=== PATIENT | male | born 2000 ===

== ENCOUNTER 2023-01-16 12:26 | Inpatient (IN) | payer BC, OTHER ==
[2023-01-16] MEDS ORDERED: SODIUM CHLORIDE 0.9% 1,000 ML IV STA ×2 (12:55→15:28)
[2023-01-16] MEDS ORDERED: MORPHINE SULFATE 4 MG/ML SYRINGE IVP STA (12:55)
[2023-01-16] MEDS ORDERED: KETOROLAC 15 MG/ML 1 ML VIAL IVP STA (12:55)
[2023-01-16] MEDS ORDERED: PANTOPRAZOLE 40 MG/10 ML VIAL IVP STA (12:55)
[2023-01-16] MEDS ORDERED: ONDANSETRON 4 MG/2 ML VIAL IVP STA (12:55)
[2023-01-16 13:27] LABS: Basophils # (A) 0.1 k/uL (0-0.2); Basophils % (A) 0 %; Eosinophils # (A) 0.1 k/uL (0-0.7); Eosinophils % (A) 1 %; HCT 50.9 % (39.0-53.0); HGB 17.8 gm/dL (13.0-17.5); Lymphocytes # (A) 3.2 k/uL (1.0-4.8); Lymphocytes % (A) 19 %; MCH 31.7 pg (25.0-35.0); MCV 90.6 fL (80.0-100.0); Monocytes # (A) 1.3 k/uL (0-1.0); Monocytes % (A) 7 %; Neutrophils # (A) 12.3 k/uL (1.3-7.7); Neutrophils % (A) 71 %; Platelet Count 262 k/uL (150-450); RBC 5.62 m/uL (4.30-5.90); RDW 12.5 % (11.5-15.5); WBC 17.2 k/uL (4.0-11.0)
--- NOTE | 2023-01-16 13:35 | ED ---
General Adult HPI - General Chief complaint: Abdominal Pain Stated complaint: Vomiting Time Seen by Provider: 01/16/23 12:45 Source: patient, RN notes reviewed, old records reviewed Mode of arrival: wheelchair Limitations: no limitations - History of Present Illness Initial comments: Patient is a 22-year-old male with past medical history is unremarkable who presents emergency Department complaining of right-sided abdominal pain, groin pain for 1 day. Patient is also to nausea and vomiting with it. Describes that he feels his testicle on the right side is tender with radiation up into right lower quadrant of his abdomen. Endorses nausea and a few episodes of nonbilious nonbloody emesis. Denies any diarrhea. Sudden onset yesterday. Initially began more mild, and was more severe this morning. Denies any chest pain, shortness breath. Denies any upper abdominal pain. Denies any history of abdominal surgeries. No other acute complaints at this time. Denies any dysuria or hematuria. Presents for further evaluation at this time. - Related Data Home Medications Medication Instructions Recorded Confirmed No Known Home Medications 01/16/23 01/16/23 Allergies Allergy/AdvReac Type Severity Reaction Status Date / Time amoxicillin Allergy Rash/Hives Verified 01/16/23 16:21 Penicillins Allergy Rash/Hives Verified 01/16/23 16:21 Review of Systems ROS Statement: Those systems with pertinent positive or pertinent negative responses have been documented in the HPI. Review of Systems: CONST: Denies fever EYES: Denies blurry vision ENT: Denies nasal congestion C/V: Denies Chest pain RESP: Denies shortness of breath GI: Endorses abdominal pain : Endorses right scrotal pain SKIN: Denies rash. MSK: Denies joint pain. NEURO: Denies headache ROS Other: All systems not noted in ROS Statement are negative. Past Medical History Past Medical History: No Reported History History of Any Multi-Drug Resistant Organisms: None Reported Past Surgical History: No Surgical Hx Reported Past Psychological History: Anxiety Smoking Status: Never smoker Past Alcohol Use History: None Reported Past Drug Use History: Marijuana General Exam - General Exam Comments Initial Comments: General: Appears in mild to moderate distress secondary to pain. HEAD: Normal with no signs of head trauma. EYES: PERRLA, EOMI, conjunctiva normal, no discharge. ENT: Hearing grossly intact, normal oropharynx. RESPIRATORY: Clear breath sounds bilaterally. No wheezes, rales, or rhonchi. C/V: Regular rate and rhythm. S1 and S2 auscultated, no edema, peripheral pulses 2+ and intact throughout ABD: Abdomen is soft, nondistended. Tender to palpation in the right lower quadrant, suprapubic region. Seems to extend down towards the groin. No guarding. No rebound tenderness. No peritoneal signs. : Penile shaft is unremarkable. No discharge. No rashes or skin changes. Patient is tender to palpation of the right testicle that is very minimal. No tenderness of the left testicle. No change in his pain with movement of the right testicle at all. No other findings. EXT: Normal range of motion, no obvious deformity SKIN: No rashes or lesions observed on exposed skin. NEURO: Alert and oriented 4. Limitations: no limitations Course Vital Signs 01/16/23 01/16/23 12:31 16:08 Temperature 98.5 F Pulse Rate 95 90 Respiratory 20 Rate Blood Pressure 137/77 140/80 O2 Sat by Pulse 98 97 Oximetry Medical Decision Making - Medical Decision Making Was pt. sent in by a medical professional or institution (, PA, PROCESSING MGR, urgent care, hospital, or group home...) When possible be specific @ -No Did you speak to anyone other than the patient for history (EMS, parent, family, police, friend...)? What history was obtained from this source @ -No Did you review nursing and triage notes (agree or disagree)? Why? @ -I reviewed and agree with nursing and triage notes Were old charts reviewed (outside hosp., previous admission, EMS record, old EKG, old radiological studies, urgent care reports/EKG's, group home records)? Report findings @ -No old charts were reviewed Differential Diagnosis (chest pain, altered mental status, abdominal pain women, abdominal pain men, vaginal bleeding, weakness, fever, dyspnea, syncope, headache, dizziness, GI bleed, back pain, seizure, CVA, palpatations, mental health, musculoskeletal)? @ -Differential Abdominal Pain Men: Appendicitis, cholecystitis, diverticulosis, ischemic bowel, pancreatitis, hepatitis, UTI, gastroenteritis, AAA, incarcerated hernia, bowel obstruction, constipation, inflammatory bowel, hepatitis, peptic ulcer disease, splenic infarction, perforated viscus, testicular torsion, this is not meant to be an all-inclusive list EKG interpreted by me (3pts min.). @ -None done X-rays interpreted by me (1pt min.). @ -None done CT interpreted by me (1pt min.). @ -CT of the abdomen and pelvis reveals acute uncomplicated appendicitis. U/S interpreted by me (1pt. min.). @ -Ultrasound scrotum, kidneys reveals no evidence of testicular torsion, kidney stone, hydronephrosis What testing was considered but not performed or refused? (CT, X-rays, U/S, labs)? Why? @ -None What meds were considered but not given or refused? Why? @ -None Did you discuss the management of the patient with other professionals (professionals i.e. , PA, [employer]ING [employer], lab, RT, psych nurse, social media specialist, senior sas developer, teacher, youth liaison officer, caser shoe parts)? Give summary @ -Yes, discussed with Dr. Dao on-call surgeon who accepted the patient. Was smoking cessation discussed for >3mins.? @ -No Was critical care preformed (if so, how long)? @ -No Were there social determinants of health that impacted care today? How? (Homelessness, low income, unemployed, alcoholism, drug addiction, transportation, low edu. Level, literacy, decrease access to med. care, half-way, rehab)? @ -No Was there de-escalation of care discussed even if they declined (Discuss DNR or withdrawal of care, Hospice)? DNR status @ -No What co-morbidities impacted this encounter? (DM, HTN, Smoking, COPD, CAD, Cancer, CVA, ARF, Chemo, Hep., AIDS, mental health diagnosis, sleep apnea, morbid obesity)? @ -None Was patient admitted / discharged? Hospital course, mention meds given and route, prescriptions, significant lab abnormalities, going to OR and other pertinent info. @ -Based on the patient's presentation and physical exam, and concern for abdominal etiology for his current symptoms. Cannot rule out right sided testicular torsion or possible appendicitis. We will obtain ultrasound of the scrotum as well as kidneys to start, as well as abdominal laboratory studies. Patient was in agreement this plan. He'll be symptomatically treated with IV fluids, IV Toradol and morphine, as well as IV Zofran. He'll also receive IV Protonix. Vital signs within acceptable limits. Ultrasound scrotum and kidneys revealed no evidence of testicular torsion. No evidence of nephrolithiasis or hydronephrosis on the right to suggest a kidney stone. Laboratory studies are remarkable for leukocytosis of 17.2. Patient has 4+ ketones in his urine. Suspect dehydration from nausea and vomiting he will be given an additional fluid bolus. I did the patient, at this time and I would like to obtain a CT abdomen and pelvis. He was in agreement this plan. CT was positive for acute appendicitis appears uncomplicated. Patient was started on ciprofloxacin, Flagyl due to his penicillin ALLERGY. Blood cultures were obtained and sent. I spoke with the on-call surgeon, Dr. Dao who accepted the patient to his service. Patient was made nothing by mouth. He will likely receive surgery later this evening. I did the patient, and he was in agreement this plan. Patient was admitted in stable condition. Undiagnosed new problem with uncertain prognosis? @ -No Drug Therapy requiring intensive monitoring for toxicity (Heparin, Nitro, Insulin, Cardizem)? @ -No Were any procedures done? @ -No Diagnosis/symptom? @ -Appendicitis Acute, or Chronic, or Acute on Chronic? @ -Acute Uncomplicated (without systemic symptoms) or Complicated (systemic symptoms)? @ -Complicated Side effects of treatment? @ -none Exacerbation, Progression, or Severe Exacerbation] @ -no Poses a threat to life or bodily function? @ -Yes, if untreated can result in significant morbidity mortality. Diagnosis/symptom? @ -Dehydration Acute, or Chronic, or Acute on Chronic? @ -Acute Uncomplicated (without systemic symptoms) or Complicated (systemic symptoms)? @ -Uncomplicated Side effects of treatment? @ -none Exacerbation, Progression, or Severe Exacerbation] @ -no Poses a threat to life or bodily function? @ -Yes, if untreated can result in significant morbidity and mortality. - Lab Data Result diagrams: 01/16/23 13:06 01/16/23 13:06 Lab Results 01/16/23 01/16/23 01/16/23 Range/Units 13:06 13:06 13:06 WBC 17.2 H (4.0-11.0) k/uL RBC 5.62 (4.30-5.90) m/uL Hgb 17.8 H (13.0-17.5) gm/dL Hct 50.9 (39.0-53.0) % MCV 90.6 (80.0-100.0) fL MCH 31.7 (25.0-35.0) pg MCHC 35.0 (31.0-37.0) g/dL RDW 12.5 (11.5-15.5) % Plt Count 262 (150-450) k/uL MPV 8.0 Neutrophils % 71 % Lymphocytes % 19 % Monocytes % 7 % Eosinophils % 1 % Basophils % 0 % Neutrophils # 12.3 H (1.3-7.7) k/uL Lymphocytes # 3.2 (1.0-4.8) k/uL Monocytes # 1.3 H (0-1.0) k/uL Eosinophils # 0.1 (0-0.7) k/uL Basophils # 0.1 (0-0.2) k/uL PT 11.4 (9.0-12.0) sec INR 1.1 (<1.2) APTT 19.5 L (22.0-30.0) sec Sodium 138 (137-145) mmol/L Potassium 4.5 (3.5-5.1) mmol/L Chloride 99 (98-107) mmol/L Carbon Dioxide 23 (22-30) mmol/L Anion Gap 16 mmol/L BUN 15 (9-20) mg/dL Creatinine 0.84 (0.66-1.25) mg/dL Est GFR (CKD-EPI)AfAm >90 (>60 ml/min/1.73 sqM) Est GFR (CKD-EPI)NonAf >90 (>60 ml/min/1.73 sqM) Glucose 102 H (74-99) mg/dL Plasma Lactic Acid Travon (0.7-2.0) mmol/L Calcium 9.6 (8.4-10.2) mg/dL Total Bilirubin 1.5 H (0.2-1.3) mg/dL AST 24 (17-59) U/L ALT 20 (4-49) U/L Alkaline Phosphatase 88 (38-126) U/L Total Protein 7.8 (6.3-8.2) g/dL Albumin 4.8 (3.5-5.0) g/dL Amylase 56 (30-110) U/L Lipase 43 (23-300) U/L Urine Color Urine Appearance (Clear) Urine pH (5.0-8.0) Ur Specific Lewis (1.001-1.035) Urine Protein (Negative) Urine Glucose (UA) (Negative) Urine Ketones (Negative) Urine Blood (Negative) Urine Nitrite (Negative) Urine Bilirubin (Negative) Urine Urobilinogen (<2.0) mg/dL Ur Leukocyte Esterase (Negative) 01/16/23 01/16/23 Range/Units 13:06 14:53 WBC (4.0-11.0) k/uL RBC (4.30-5.90) m/uL Hgb (13.0-17.5) gm/dL Hct (39.0-53.0) % MCV (80.0-100.0) fL MCH (25.0-35.0) pg MCHC (31.0-37.0) g/dL RDW (11.5-15.5) % Plt Count (150-450) k/uL MPV Neutrophils % % Lymphocytes % % Monocytes % % Eosinophils % % Basophils % % Neutrophils # (1.3-7.7) k/uL Lymphocytes # (1.0-4.8) k/uL Monocytes # (0-1.0) k/uL Eosinophils # (0-0.7) k/uL Basophils # (0-0.2) k/uL PT (9.0-12.0) sec INR (<1.2) APTT (22.0-30.0) sec Sodium (137-145) mmol/L Potassium (3.5-5.1) mmol/L Chloride (98-107) mmol/L Carbon Dioxide (22-30) mmol/L Anion Gap mmol/L BUN (9-20) mg/dL Creatinine (0.66-1.25) mg/dL Est GFR (CKD-EPI)AfAm (>60 ml/min/1.73 sqM) Est GFR (CKD-EPI)NonAf (>60 ml/min/1.73 sqM) Glucose (74-99) mg/dL Plasma Lactic Acid Travon 1.4 (0.7-2.0) mmol/L Calcium (8.4-10.2) mg/dL Total Bilirubin (0.2-1.3) mg/dL AST (17-59) U/L ALT (4-49) U/L Alkaline Phosphatase (38-126) U/L Total Protein (6.3-8.2) g/dL Albumin (3.5-5.0) g/dL Amylase (30-110) U/L Lipase (23-300) U/L Urine Color Yellow Urine Appearance Clear (Clear) Urine pH 6.0 (5.0-8.0) Ur Specific Lewis 1.021 (1.001-1.035) Urine Protein Trace H (Negative) Urine Glucose (UA) Negative (Negative) Urine Ketones 4+ H (Negative) Urine Blood Negative (Negative) Urine Nitrite Negative (Negative) Urine Bilirubin Negative (Negative) Urine Urobilinogen <2.0 (<2.0) mg/dL Ur Leukocyte Esterase Negative (Negative) Disposition Clinical Impression: Appendicitis, Dehydration Disposition: ADMITTED IP TO THIS [facility] Condition: Stable Time of Disposition: 15:15
[2023-01-16 13:42] LABS: ALT 20 U/L (4-49); AST 24 U/L (17-59); African American GFR (CKD) >90 (>60 ml/min/1.73 sqM); Albumin 4.8 g/dL (3.5-5.0); Alkaline Phosphatase 88 U/L (38-126); Amylase 56 U/L (30-110); Anion Gap 16 mmol/L; Blood Urea Nitrogen 15 mg/dL (9-20); Calcium 9.6 mg/dL (8.4-10.2); Carbon Dioxide 23 mmol/L (22-30); Chloride 99 mmol/L (98-107); Glucose 102 mg/dL (74-99); INR 1.1 (<1.2); Lipase 43 U/L (23-300); Non-African American GFR(CKD) >90 (>60 ml/min/1.73 sqM); Potassium 4.5 mmol/L (3.5-5.1); Prothrombin Time 11.4 sec (9.0-12.0); Sodium 138 mmol/L (137-145); Total Bilirubin 1.5 mg/dL (0.2-1.3); Total Protein 7.8 g/dL (6.3-8.2)
[2023-01-16 13:50] LABS: Partial Thromboplastin Time 19.5 sec (22.0-30.0)
--- NOTE | 2023-01-16 14:04 | US ---
EXAMINATION TYPE: US renals and bladder DATE OF EXAM: 01/16/2023 COMPARISON: NONE CLINICAL HISTORY: eval for right hydronephrosis. right flank pain EXAM MEASUREMENTS: Right Kidney: 10.7 x 4.1 x 5.4 cm Left Kidney: 11.1 x 5.1 x 4.2 cm Right Kidney: no evidence of hydronephrosis Left Kidney: no evidence of hydronephrosis Bladder: not fully distended Bilateral Jets seen: no There is no evidence for hydronephrosis at this point in time. No nephrolithiasis is seen. No aurelia s are identified. The urinary bladder is anechoic. Bilateral ureteral jets are seen. IMPRESSION: No evidence for obstructive uropathy.
--- NOTE | 2023-01-16 14:06 | US ---
EXAMINATION TYPE: US scrotum with doppler. Grayscale and color Doppler Duplex imaging performed of leni deal scrotum. DATE OF EXAM: 01/16/2023 COMPARISON: NONE CLINICAL HISTORY: right scrotal pain, eval for torsion. scrotal pain EXAM MEASUREMENTS: TESTICLES: Right Testicle: 3.5 x 1.8 x 3.4 cm Left Testicle: 3.5 x 1.8 x 3.8 cm EPIDIDYMIS HEAD: Right Epididymis: 1.1 cm Left Epididymis: 0.9 cm Doppler performed to assess for testicular vascularity; good bilateral color flow and waveforms are s een. There is no evidence of testicular torsion. Presence of hydroceles: no Presence of varicoceles: no IMPRESSION: Normal exam. No testicular torsion or mass.
[2023-01-16 15:22] LABS: Appearance,Urine Clear (Clear); Bilirubin,Urine Negative (Negative); Blood,Urine Negative (Negative); Color,Urine Yellow; Glucose,Urine (UA) Negative (Negative); Ketones,Urine 4+ (Negative); Leukocyte Esterase,Urine Negative (Negative); Nitrite,Urine Negative (Negative); Protein,Urine Trace (Negative); Specific Gravity,Urine 1.021 (1.001-1.035); Urobilinogen,Urine <2.0 mg/dL (<2.0)
--- NOTE | 2023-01-16 15:24 | CT ---
EXAMINATION TYPE: CT abdomen pelvis w con DATE OF EXAM: 01/16/2023 COMPARISON: None HISTORY: RT SIDED ABDOMINAL/ GROIN PAIN. CT DLP: 623.7 mGycm Automated exposure control for dose reduction was used. CONTRAST: Performed with IV Contrast, patient injected with 100 mL of Isovue 300. Images obtained from the diaphragm to the floor of the pelvis with the IV contrast. There are delayed images. Lung bases are clear. No pleural effusion. Heart size is normal. No pericardial effusion. Liver splee n stomach pancreas and gallbladder appear intact. The bile ducts are not dilated. There is no adrenal mass. Kidneys show satisfactory contrast opacification. No hydronephrosis. Ureter s are not dilated. No retroperitoneal adenopathy. The bladder distends smoothly. There is small amoun t of low-density free fluid in the pelvis. No inguinal hernia. There is no mesenteric edema. No free air. No sign of a bowel obstruction. There is tiny amount of fl uid in the left paracolic gutter. Lumbar vertebrae have normal spacing and alignment. Posterior elements are intact. No compression fra cture. The bony pelvis is intact. The hip joints are intact. Exam limited by lack of intestinal contr ast. Appendix appears to be visualized medially extending superiorly along the medial aspect of the a scending colon and best seen on coronal image 34,35. Appendix is dilated up to 1.5 cm on the distal e nd. The cecum is low in the pelvis. There is suggestion of some mild wall thickening of the distal il eal loops. IMPRESSION: There is some low-density free fluid in the pelvis. There is evidence for appendicitis with appendix dilated up to 1.5 cm.. There is mild wall thickening of loops of distal ileum.
[2023-01-16] MEDS ORDERED: NALOXONE 0.4 MG/ML 1 ML VIAL IV PRN ×2 (15:29→16:40)
[2023-01-16] MEDS: SODIUM CHLORIDE 0.9% 1,000 ML IV SCH ×2 (16:01→17:55)
[2023-01-16] MEDS: ONDANSETRON 4 MG/2 ML VIAL IVP PRN (16:02)
[2023-01-16] MEDS: CEFEPIME 2 GM in SODIUM CHLORIDE 0.9% 100 ML IVPB SCH (16:02)
[2023-01-16] MEDS: MORPHINE SULFATE 4 MG/ML SYRINGE IV PRN ×2 (16:02→22:48)
--- NOTE | 2023-01-16 16:39 | P.GSHP ---
History of Present Illness H&P Date: 01/16/23 Chief Complaint: Acute abdominal pain, nausea and emesis Patient is a 22-year-old gentleman who presents to [facility] emergency department on 01/16/2023 with chief complaint of around 24 hours of progressive abdominal pain along with nausea and multiple bouts of nonbloody emesis. He tells me the pain started somewhat central and diffusely in the abdomen and has now come to rest in the right side with some radiation to the right flank and back as well as right hemiscrotum. He may have had similar symptoms a few years ago that he attributed to food poisoning that were transient in nature. He's never undergone any manner of endoscopy, has no known personal history of inflammatory bowel disease. Symptoms of grown progressively worse up until presentation today. He is not maintained on any manner of oral anticoagulants, has no known health problems. Laboratory studies on presentation reflected degree of dehydration with a white blood cell count of 17.2, hemoglobin of 17.8, platelet count of 262, ketones in the urine without flagrant signs of UTI and a normal appearing comprehensive metabolic panel with the exception of a mild elevation of total bilirubin at 1.5, no other liver function elevations. Amylase and lipase were within normal limits. A scrotal ultrasound showed no signs of torsion, retroperitoneal ultrasound showed no signs of obstruction and a computed tomography scan of the abdomen and pelvis disclosed an inflamed appearing appendix with regional inflammatory changes involving the adjacent small bowel in trace free fluid in the pelvis without free air or organized abscess. Patient's had a hypertensive, mildly tachycardic appearance in the setting of nausea and pain. He's receive broad-spectrum antibiotics in the ER with cefepime and Flagyl. - Constitutional Constitutional: Reports as per HPI, Reports chills Past Medical History Past Medical History: No Reported History History of Any Multi-Drug Resistant Organisms: None Reported Past Surgical History: No Surgical Hx Reported Past Psychological History: Anxiety Smoking Status: Never smoker Past Alcohol Use History: None Reported Past Drug Use History: Marijuana Medications and Allergies Home Medications Medication Instructions Recorded Confirmed Type No Known Home Medications 01/16/23 01/16/23 History Allergies Allergy/AdvReac Type Severity Reaction Status Date / Time amoxicillin Allergy Rash/Hives Verified 01/16/23 16:21 Penicillins Allergy Rash/Hives Verified 01/16/23 16:21 Surgical - Exam Osteopathic Statement: *. No significant issues noted on an osteopathic structural exam other than those noted in the History and Physical/Consult. Vital Signs Temp Pulse Resp BP Pulse Ox 98.5 F 95 20 137/77 98 01/16/23 12:31 01/16/23 12:31 01/16/23 12:31 01/16/23 12:31 01/16/23 12:31 - General well developed, no distress - Eyes PERRL, normal ocular movement - ENT normal pinna, normal nares, normal mucosa, no hearing loss - Respiratory normal expansion, normal respiratory effort, clear to auscultation - Cardiovascular Rhythm: regular - Abdomen Abdomen is soft, there is moderate right lower quadrant tenderness on exam with a positive Rovsing's sign and positive psoas sign on the right. No guarding, no abdominal distention. - Integumentary no rash, no abnormal pigmentation - Neurologic normal coordination, normal sensation - Psychiatric oriented to time, oriented to person, oriented to place, speech is normal, memory intact Results - Labs 01/16/23 13:06 01/16/23 13:06 Abnormal Lab Results - Last 24 Hours (Table) 01/16/23 01/16/23 01/16/23 Range/Units 13:06 13:06 13:06 WBC 17.2 H (4.0-11.0) k/uL Hgb 17.8 H (13.0-17.5) gm/dL Neutrophils # 12.3 H (1.3-7.7) k/uL Monocytes # 1.3 H (0-1.0) k/uL APTT 19.5 L (22.0-30.0) sec Glucose 102 H (74-99) mg/dL Total Bilirubin 1.5 H (0.2-1.3) mg/dL Urine Protein (Negative) Urine Ketones (Negative) 01/16/23 Range/Units 14:53 WBC (4.0-11.0) k/uL Hgb (13.0-17.5) gm/dL Neutrophils # (1.3-7.7) k/uL Monocytes # (0-1.0) k/uL APTT (22.0-30.0) sec Glucose (74-99) mg/dL Total Bilirubin (0.2-1.3) mg/dL Urine Protein Trace H (Negative) Urine Ketones 4+ H (Negative) Diabetes panel 01/16/23 Range/Units 13:06 Sodium 138 (137-145) mmol/L Potassium 4.5 (3.5-5.1) mmol/L Chloride 99 (98-107) mmol/L Carbon Dioxide 23 (22-30) mmol/L BUN 15 (9-20) mg/dL Creatinine 0.84 (0.66-1.25) mg/dL Glucose 102 H (74-99) mg/dL Calcium 9.6 (8.4-10.2) mg/dL AST 24 (17-59) U/L ALT 20 (4-49) U/L Alkaline Phosphatase 88 (38-126) U/L Total Protein 7.8 (6.3-8.2) g/dL Albumin 4.8 (3.5-5.0) g/dL Calcium panel 01/16/23 Range/Units 13:06 Calcium 9.6 (8.4-10.2) mg/dL Albumin 4.8 (3.5-5.0) g/dL Pituitary panel 01/16/23 Range/Units 13:06 Sodium 138 (137-145) mmol/L Potassium 4.5 (3.5-5.1) mmol/L Chloride 99 (98-107) mmol/L Carbon Dioxide 23 (22-30) mmol/L BUN 15 (9-20) mg/dL Creatinine 0.84 (0.66-1.25) mg/dL Glucose 102 H (74-99) mg/dL Calcium 9.6 (8.4-10.2) mg/dL Adrenal panel 01/16/23 Range/Units 13:06 Sodium 138 (137-145) mmol/L Potassium 4.5 (3.5-5.1) mmol/L Chloride 99 (98-107) mmol/L Carbon Dioxide 23 (22-30) mmol/L BUN 15 (9-20) mg/dL Creatinine 0.84 (0.66-1.25) mg/dL Glucose 102 H (74-99) mg/dL Calcium 9.6 (8.4-10.2) mg/dL Total Bilirubin 1.5 H (0.2-1.3) mg/dL AST 24 (17-59) U/L ALT 20 (4-49) U/L Alkaline Phosphatase 88 (38-126) U/L Total Protein 7.8 (6.3-8.2) g/dL Albumin 4.8 (3.5-5.0) g/dL - Imaging CT scan - abdomen: report reviewed, image reviewed US - kidney/bladder: report reviewed Assessment and Plan Assessment: 22-year-old gentleman with clinical history, physical exam, laboratory and imaging findings all consistent with an acute appendicitis without evidence of rupture or abscess. At least moderate dehydration on presentation with ketones in the urine, suspect relating to intractable nausea and repeat bouts of emesis, no flagrant electrolytes abnormalities disclosed on CMP. Plan: Options for treatment were discussed with the patient. He wishes to move forwa rd with laparoscopic, possible open appendectomy to be performed this evening. He gave informed consent for the same after discussion of risks, benefit and alternatives to treatment. He'll be admitted to my care for overnight convalescence. If there is no evidence of rupture or abscess and is doing well by morning I suspect him to be ready for discharge home by tomorrow afternoon. If there is evidence of rupture or abscess site I'd expect a longer inpatient stay. Time with Patient: Greater than 30
[2023-01-16] MEDS ORDERED: ACETAMINOPHEN TAB 325 MG TAB PO PRN (16:40)
[2023-01-16] MEDS ORDERED: ONDANSETRON 4 MG/2 ML VIAL IVP PRN (16:40)
[2023-01-16] MEDS: metroNIDAZOLE-NS PMX 500 MG in SALINE 1 100ML.BAG IVPB SCH (16:54)
[2023-01-16] MEDS: HEPARIN SODIUM,PORCINE/PF 5,000 UNIT/0.5 ML SYRINGE SQ SCH (17:12)
[2023-01-16] MEDS ORDERED: HYDROmorphone (PF) 1 MG/ML ONE (18:06)
[2023-01-16] MEDS ORDERED: ROCURONIUM 10 MG/ML (5 ML VIAL) IV ONE (18:06)
[2023-01-16] MEDS ORDERED: NEOSTIGMINE 1 MG/ML 10 ML VIAL ONE (18:06)
[2023-01-16] MEDS ORDERED: MIDAZOLAM 2 MG/2 ML VIAL ONE (18:06)
[2023-01-16] MEDS ORDERED: fentaNYL (PF) 50 MCG/ML 2 ML AMP ONE (18:06)
[2023-01-16] MEDS ORDERED: SUCCINYLCHOLINE CHLORIDE 200 MG/10 ML VIAL IV ONE (18:06)
[2023-01-16] MEDS ORDERED: GLYCOPYRROLATE 0.2 MG/ML 2 ML VIAL ONE (18:06)
[2023-01-16] MEDS ORDERED: NALOXONE 0.4 MG/ML 1 ML VIAL ONE (18:06)
[2023-01-16] MEDS ORDERED: ONDANSETRON 4 MG/2 ML VIAL ONE (18:06)
[2023-01-16] MEDS ORDERED: LIDOCAINE 2% INJ 20 MG/ML (2 ML VIAL) ONE (18:06)
[2023-01-16] MEDS ORDERED: SODIUM CHLORIDE 0.9% 1,000 ML IV ONE ×2 (18:06→19:24)
[2023-01-16] MEDS ORDERED: LIDOCAINE 1% INJ 10MG/ML (10 ML MDV) SQ ONE ×2 (18:33)
[2023-01-16] MEDS ORDERED: BUPIVACAIN-EPI 0.25%-1:200,000 30 ML VIAL SQ ONE ×2 (18:34)
[2023-01-16] MEDS ORDERED: BACITRACIN OINT 1 EACH PACKET TOPICAL ONE (19:23)
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
[2023-01-17] MEDS: metroNIDAZOLE-NS PMX 500 MG in SALINE 1 100ML.BAG IVPB SCH ×3 (00:29→15:19)
[2023-01-17] MEDS: CEFEPIME 2 GM in SODIUM CHLORIDE 0.9% 100 ML IVPB SCH ×3 (00:29→15:19)
[2023-01-17] MEDS: HEPARIN SODIUM,PORCINE/PF 5,000 UNIT/0.5 ML SYRINGE SQ SCH ×3 (00:30→15:19)
[2023-01-17] MEDS: MORPHINE SULFATE 4 MG/ML SYRINGE IV PRN ×7 (02:40→21:19)
[2023-01-17] MEDS: LACTATED RINGERS 1,000 ML IV SCH ×4 (06:13→16:43)
[2023-01-17] MEDS: HYDROcodone/APAP 5-325MG 1 EACH TAB PO PRN ×2 (06:29→12:46)
[2023-01-17] MEDS: SODIUM CHLORIDE 0.9% 1,000 ML IV SCH ×2 (07:28→07:29)
[2023-01-17 10:44] LABS: Basophils # (A) 0.05 X 10*3/uL (0.00-0.10); Basophils % (A) 0.3 %; Eosinophils # (A) 0.07 X 10*3/uL (0.04-0.35); Eosinophils % (A) 0.4 %; HCT 41.1 % (39.6-50.0); Immature Grans, Automated 0.4 %; Lymphocytes # (A) 2.34 X 10*3/uL (0.90-5.00); Lymphocytes % (A) 14.9 %; MCH 30.8 pg (27.0-32.0); MCHC 34.1 g/dL (32.0-37.0); MCV 90.5 fL (80.0-97.0); Mean Platelet Volume 10.3 fL (9.5-12.2); Monocytes # (A) 1.39 X 10*3/uL (0.20-1.00); Monocytes % (A) 8.8 %; NRBC Per 100 WBC 0 /100 WBCS (0.0-0.0); Neutrophils # (A) 11.81 X 10*3/uL (1.80-7.70); Neutrophils % (A) 75.2 %; Platelet Count 239 X 10*3/uL (140-440); RBC 4.54 X 10*6/uL (4.40-5.60); RDW 13.2 % (11.5-14.5); WBC 15.73 X 10*3/uL (4.50-10.00)
[2023-01-17 10:51] LABS: Anion Gap 8.6 mmol/L (10.00-18.00); BUN/Creat Ratio 12.44 Ratio (12.00-20.00); Blood Urea Nitrogen 11.2 mg/dL (9.0-27.0); Calcium 8.9 mg/dL (8.7-10.3); Carbon Dioxide 23.4 mmol/L (20.0-27.5); Non-African American GFR(CKD) 122.5 (60.0-200.0); Potassium 4.7 mmol/L (3.5-5.5)
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
[2023-01-17] MEDS: KETOROLAC 15 MG/ML 1 ML VIAL IVP SCH (17:07)
[2023-01-18] MEDS: HEPARIN SODIUM,PORCINE/PF 5,000 UNIT/0.5 ML SYRINGE SQ SCH ×3 (00:11→16:44)
[2023-01-18] MEDS: KETOROLAC 15 MG/ML 1 ML VIAL IVP SCH ×6 (00:11→23:52)
[2023-01-18] MEDS: CEFEPIME 2 GM in SODIUM CHLORIDE 0.9% 100 ML IVPB SCH ×4 (00:11→23:51)
[2023-01-18] MEDS: SODIUM CHLORIDE 0.9% 1,000 ML IV SCH ×3 (00:12→14:44)
[2023-01-18] MEDS: metroNIDAZOLE-NS PMX 500 MG in SALINE 1 100ML.BAG IVPB SCH ×4 (00:12→23:52)
[2023-01-18] MEDS: MORPHINE SULFATE 4 MG/ML SYRINGE IV PRN ×4 (03:26→16:32)
[2023-01-18] MEDS: LACTATED RINGERS 1,000 ML IV SCH ×3 (05:21→17:18)
[2023-01-18 09:12] LABS: Basophils # (A) 0.03 X 10*3/uL (0.00-0.10); Basophils % (A) 0.2 %; Eosinophils # (A) 0.02 X 10*3/uL (0.04-0.35); Eosinophils % (A) 0.1 %; HCT 40.3 % (39.6-50.0); HGB 13.7 g/dL (13.0-17.0); Immature Grans, Automated 0.6 %; Lymphocytes # (A) 1.09 X 10*3/uL (0.90-5.00); Lymphocytes % (A) 7.7 %; MCH 30.9 pg (27.0-32.0); Mean Platelet Volume 10.5 fL (9.5-12.2); Monocytes # (A) 1.19 X 10*3/uL (0.20-1.00); Monocytes % (A) 8.4 %; NRBC Per 100 WBC 0 /100 WBCS (0.0-0.0); Neutrophils # (A) 11.67 X 10*3/uL (1.80-7.70); Platelet Count 227 X 10*3/uL (140-440); RBC 4.43 X 10*6/uL (4.40-5.60); RDW 12.9 % (11.5-14.5); WBC 14.09 X 10*3/uL (4.50-10.00)
[2023-01-18 09:15] LABS: Albumin 3.6 g/dL (3.8-4.9); Albumin/Globulin Ratio 1.8 (1.60-3.17); Anion Gap 10.2 mmol/L (10.00-18.00); BUN/Creat Ratio 17.75 Ratio (12.00-20.00); Blood Urea Nitrogen 14.2 mg/dL (9.0-27.0); Calcium 8.7 mg/dL (8.7-10.3); Carbon Dioxide 23.8 mmol/L (20.0-27.5); Non-African American GFR(CKD) 128.6 (60.0-200.0); Potassium 4.3 mmol/L (3.5-5.5); Total Bilirubin 0.9 mg/dL (0.30-1.20); Total Protein 5.6 g/dL (6.2-8.2)
[2023-01-18] MEDS: HYDROcodone/APAP 5-325MG 1 EACH TAB PO PRN ×2 (09:20→13:54)
--- NOTE | 2023-01-18 14:37 | CDI ---
Documentation Clarification Form Date: 01/18/2023 2:25:53 PM From: Brittaney Souza RN CCDS Phone: [phone] Admit Date: 01/16/2023 3:29:00 PM Patient Name: Bert Louis Visit Number: [id number] Discharge Date: ATTENTION: The Clinical Documentation Specialists (CDI) and [facility] Coding Staff appreciate your assistance in clarifying documentation. Please respond to the clarification below the line at the bottom and electronically sign. The CDI & [facility] Coding staff will review the response and follow-up if needed. Please note: Queries are made part of the Legal Health Record. If you have any questions, please contact the author of this message via ITS. Dr. Vito Dao Based on this information and the findings below, is there an additional diagnosis that is clinically appropriate for this patient? History/Risk Factors: 22-year-old male presents to the ED with abdominal pain for 24 hours w/ nausea and emesis. Medical History: Anxiety. 01/16, H&P. Clinical Indicators: Procedure note, 01/16: chief complaints of nearly 24 hours of progressive abdominal pain that started centrally, came to rest in the right side accompanied by intractable emesis and subjective chills. Procedure note, 01/16: There was some murky purulent fluid present in the pelvis and diffuse serosal inflammation over the majority of the small bowel as well as the peritoneum in this area. Labs, 01/16: Wbc 17.2; Neutrophils 12.3 Vitals signs: 01/16 B/P 143/79, HR 112, Temp 99.2 F Temporal, RR 16, SpO2 99% room air Treatment: Laparoscopic appendectomy with irrigation and drain placement Antibiotics: 3 Cefepime IVPB Q8HR; / Metronidazole IVPB Q8HR IV Bolus: 01/16 0.9NS 2L Bolus Is there an additional diagnosis that is clinically appropriate for this patient? [ x] Sepsis, present on admission [ ] Sepsis ruled out [ ] Other, please specify [ ] Unable to determine SIRS Criteria: 2 or more of the following may indicate SIRS Temperature < 96.8F (36C) or > 101.0F (38.3C) Heart Rate > 90 bpm Respiratory Rate > 20 breaths/min or PaCO2 < 32 mmHg White Blood Cell Count > 12,000 or < 4,000 cells/mm3 or > 10% bands (Template Last Reviewed: November 2022) MTDD
[2023-01-18] MEDS: HYDROcodone/APAP 7.5-325MG 1 EACH TAB PO PRN ×2 (17:52→21:57)
--- NOTE | 2023-01-18 20:24 | P.PN ---
Subjective Progress Note Date: 01/18/23 Principal diagnosis: acute appendicitis 22-year-old gentleman who presented to [facility] emergency Department 01/16/2023 with chief complaints of nearly 24 hours of progressive abdominal pain that started centrally, came to rest in the right side accompanied by intractable nausea and emesis and subjective chills. Laboratory studies showed a leukocytosis at around 17,000, computed tomography scan of the abdomen and pelvis showed findings consistent with acute appendicitis without obvious rupture or abscess formation and physical exam demonstrated localized peritonitis in the right lateral abdomen with positive Rovsing's and so as sign. Patient was started on broad-spectrum antibiotics in the emergency department, options for treatment were discussed and the patient gave informed consent for laparoscopic, possible open appendectomy after discussion of risks, benefit and alternatives to treatment. He was taken to the operating room that same evening for definitive surgery & found to have a gangrenous appendix without rupture or abscess formation. Past 24 hours, been walking in his room. Still requiring Morphine for pain. Not much of appetite. Tolerating liquids. Passing flatus. No BM yet but feels like one is coming. Urinating without difficulty. Minimal drain output, serosanguinous drainage. Improving leukocytosis, no tachycardia. Objective - Vital Signs Vital signs: Vital Signs Temp 98.3 F 01/18/23 07:15 Pulse 80 01/18/23 07:15 Resp 16 01/18/23 07:15 BP 109/70 01/18/23 07:15 Pulse Ox 98 01/18/23 07:15 FiO2 Intake & Output 01/17/23 01/18/23 01/18/23 18:59 06:59 18:59 Other: # Voids 1 2 - Constitutional General appearance: Present: cooperative, no acute distress - EENT Eyes: Present: anicteric sclerae ENT: Present: hearing grossly normal - Respiratory Respiratory: bilateral: CTA (non labored) - Cardiovascular Rhythm: regular - Gastrointestinal Gastrointestinal Comment(s): diffuse tenderness but no peritonitis, less tender with distraction General gastrointestinal: Present: soft. Absent: distended - Integumentary Integumentary Comment(s): dry, no diaphoresis - Neurologic Neurologic Comment(s): grossly intact - Psychiatric Psychiatric: Present: appropriate affect - Labs CBC & Chem 7: 01/18/23 04:53 01/18/23 04:53 Labs: Abnormal Lab Results - Last 24 Hours (Table) 01/17/23 01/17/23 01/18/23 Range/Units 06:55 06:55 04:53 WBC 15.73 H 14.09 H (4.50-10.00) X 10*3/uL Immature Gran # 0.07 H 0.09 H (0.00-0.04) X 10*3/uL Neutrophils # 11.81 H 11.67 H (1.80-7.70) X 10*3/uL Monocytes # 1.39 H 1.19 H (0.20-1.00) X 10*3/uL Eosinophils # 0.02 L (0.04-0.35) X 10*3/uL Anion Gap 8.60 L (10.00-18.00) mmol/L Glucose (70-110) mg/dL Total Protein (6.2-8.2) g/dL Albumin (3.8-4.9) g/dL 01/18/23 Range/Units 04:53 WBC (4.50-10.00) X 10*3/uL Immature Gran # (0.00-0.04) X 10*3/uL Neutrophils # (1.80-7.70) X 10*3/uL Monocytes # (0.20-1.00) X 10*3/uL Eosinophils # (0.04-0.35) X 10*3/uL Anion Gap (10.00-18.00) mmol/L Glucose 115 H (70-110) mg/dL Total Protein 5.6 L (6.2-8.2) g/dL Albumin 3.6 L (3.8-4.9) g/dL Microbiology - Last 24 Hours (Table) 01/16/23 19:09 Gram Stain - Preliminary Aspirate Body Fluid Culture - Preliminary 01/16/23 15:40 Blood Culture - Preliminary Blood No Growth after 24 hours 01/16/23 15:30 Blood Culture - Preliminary Blood No Growth after 24 hours - Imaging and Cardiology CT scan - abdomen: report reviewed Assessment and Plan Assessment: acute appendicitis with gangrenous changes towards the tip and diffuse purulent peritonitis - anticipate degree of post-operative ileus postoperative day 2 laparoscopic appendectomy with washout and drain placement Plan: increase [place] to 7.5 to optimize pain control alternate [place] with Toradol try to give 6 hours uninterrupted sleep time overnight stool softener encourage ambulation, IS use - discussed risk of pneumonia advance to soft diet, as tolerates
[2023-01-18] MEDS: DOCUSATE 100 MG CAP PO SCH (21:57)
[2023-01-19] MEDS: SODIUM CHLORIDE 0.9% 1,000 ML IV SCH ×4 (00:15→21:27)
[2023-01-19] MEDS: HEPARIN SODIUM,PORCINE/PF 5,000 UNIT/0.5 ML SYRINGE SQ SCH ×5 (00:16→23:18)
[2023-01-19] MEDS: LACTATED RINGERS 1,000 ML IV SCH ×3 (00:16→19:11)
[2023-01-19] MEDS: HYDROcodone/APAP 7.5-325MG 1 EACH TAB PO PRN ×5 (02:36→21:40)
[2023-01-19] MEDS: KETOROLAC 15 MG/ML 1 ML VIAL IVP SCH ×3 (05:47→19:22)
[2023-01-19] MEDS: CEFEPIME 2 GM in SODIUM CHLORIDE 0.9% 100 ML IVPB SCH ×3 (08:41→23:17)
[2023-01-19] MEDS: DOCUSATE 100 MG CAP PO SCH ×2 (08:44→21:40)
[2023-01-19] MEDS: metroNIDAZOLE-NS PMX 500 MG in SALINE 1 100ML.BAG IVPB SCH ×3 (08:44→23:17)
[2023-01-19 12:08] LABS: Basophils # (A) 0.05 X 10*3/uL (0.00-0.10); Basophils % (A) 0.4 %; Eosinophils # (A) 0.24 X 10*3/uL (0.04-0.35); Eosinophils % (A) 2.1 %; HGB 13.9 g/dL (13.0-17.0); Immature Grans, Automated 0.5 %; Lymphocytes # (A) 1.79 X 10*3/uL (0.90-5.00); Lymphocytes % (A) 15.9 %; MCH 31.4 pg (27.0-32.0); MCHC 33.9 g/dL (32.0-37.0); MCV 92.8 fL (80.0-97.0); Mean Platelet Volume 10.8 fL (9.5-12.2); Monocytes # (A) 0.99 X 10*3/uL (0.20-1.00); Monocytes % (A) 8.8 %; NRBC Per 100 WBC 0 /100 WBCS (0.0-0.0); Neutrophils # (A) 8.11 X 10*3/uL (1.80-7.70); Neutrophils % (A) 72.3 %; Platelet Count 201 X 10*3/uL (140-440); RBC 4.42 X 10*6/uL (4.40-5.60); RDW 13.1 % (11.5-14.5); WBC 11.24 X 10*3/uL (4.50-10.00)
[2023-01-19 12:43] LABS: African American GFR (CKD) 157.5 (60.0-200.0); Albumin 3.3 g/dL (3.8-4.9); Albumin/Globulin Ratio 1.38 (1.60-3.17); Anion Gap 16.2 mmol/L (10.00-18.00); BUN/Creat Ratio 18.86 Ratio (12.00-20.00); Blood Urea Nitrogen 13.2 mg/dL (9.0-27.0); Calcium 8.7 mg/dL (8.7-10.3); Carbon Dioxide 18.8 mmol/L (20.0-27.5); Globulin 2.4 g/dL (1.6-3.3); Non-African American GFR(CKD) 135.9 (60.0-200.0); Potassium 5.1 mmol/L (3.5-5.5); Total Bilirubin 0.7 mg/dL (0.30-1.20); Total Protein 5.7 g/dL (6.2-8.2)
--- NOTE | 2023-01-19 16:51 | P.PN ---
Subjective Progress Note Date: 01/19/23 Principal diagnosis: acute appendicitis 22-year-old gentleman who presented to [facility] emergency Department 01/16/2023 with chief complaints of nearly 24 hours of progressive abdominal pain that started centrally, came to rest in the right side accompanied by intractable nausea and emesis and subjective chills. Laboratory studies showed a leukocytosis at around 17,000, computed tomography scan of the abdomen and pelvis showed findings consistent with acute appendicitis without obvious rupture or abscess formation and physical exam demonstrated localized peritonitis in the right lateral abdomen with positive Rovsing's and Psoas sign. Patient was started on broad-spectrum antibiotics in the emergency department, options for treatment were discussed and the patient gave informed consent for laparoscopic, possible open appendectomy after discussion of risks, benefit and alternatives to treatment. He was taken to the operating room that same evening for definitive surgery & found to have a gangrenous appendix without rupture or abscess formation. Past 24 hours, doing better than yesterday. More of an appetite & ate pancakes today. Passing more flatus; feels stool softeners are helping & feels a BM coming on. Was walking in halls today. Having some pleuritic chest pain but no SOB, CARMELO. Endorses smoking "a lot" of THC. No tachycardia, no tachypnea. WBC continues to down-trend. Increase in pain medication dose has helped. Objective - Vital Signs Vital signs: Vital Signs Temp 98.0 F 01/19/23 07:05 Pulse 82 01/19/23 07:05 Resp 17 01/19/23 07:05 BP 131/86 01/19/23 07:05 Pulse Ox 98 01/19/23 08:35 FiO2 Intake & Output 01/18/23 01/19/23 01/19/23 18:59 06:59 18:59 Output Total 950 410 Balance -950 -410 Output: Drainage 10 Left Abdomen 10 Urine 950 400 Other: # Voids 1 - Constitutional General appearance: Present: cooperative, no acute distress, thin - EENT Eyes: Present: anicteric sclerae ENT: Present: hearing grossly normal - Neck Details: supple - Respiratory Details: non labored breathing, normal effort & excursion - Cardiovascular Rhythm: regular - Gastrointestinal General gastrointestinal: Absent: distended - Integumentary Integumentary: Absent: flushed, jaundiced - Neurologic Neurologic Comment(s): grossly intact - Musculoskeletal Musculoskeletal: Present: gait normal - Psychiatric Psychiatric: Present: A&O x's 3, appropriate affect - Labs CBC & Chem 7: 01/19/23 06:51 01/19/23 06:51 Labs: Abnormal Lab Results - Last 24 Hours (Table) 01/18/23 01/18/23 Range/Units 04:53 04:53 WBC 14.09 H (4.50-10.00) X 10*3/uL Immature Gran # 0.09 H (0.00-0.04) X 10*3/uL Neutrophils # 11.67 H (1.80-7.70) X 10*3/uL Monocytes # 1.19 H (0.20-1.00) X 10*3/uL Eosinophils # 0.02 L (0.04-0.35) X 10*3/uL Glucose 115 H (70-110) mg/dL Total Protein 5.6 L (6.2-8.2) g/dL Albumin 3.6 L (3.8-4.9) g/dL Microbiology - Last 24 Hours (Table) 01/16/23 19:09 Gram Stain - Preliminary Aspirate Body Fluid Culture - Preliminary 01/16/23 15:40 Blood Culture - Preliminary Blood No Growth after 48 hours 01/16/23 15:30 Blood Culture - Preliminary Blood No Growth after 48 hours Assessment and Plan Assessment: acute appendicitis with gangrenous changes towards the tip and diffuse purulent peritonitis - anticipate degree of post-operative ileus postoperative day 3 laparoscopic appendectomy with washout and drain placement - drain output minimal - cultures no growth for past 48 hours - path returned: Suppurative acute appendicitis with transmural inflammation and periappendicitis pleuritic chest pain, suspect 2/2 gas pains or atelectasis; less likely pne umonia - no respiratory issues Plan: continue pain regimen try to give 6 hours uninterrupted sleep time overnight stool softener encourage ambulation, IS use - discussed risk of pneumonia - chest XR ordered anticipate discharge in next 24-48 hours with likely drain removal Time with Patient: Less than 30
--- NOTE | 2023-01-19 17:15 | XR ---
EXAMINATION TYPE: XR chest 2V DATE OF EXAM: 01/19/2023 COMPARISON: NONE HISTORY: Chest pain after appendectomy. TECHNIQUE: Frontal and lateral views of the chest are obtained. FINDINGS: There is no focal airspace opacity. There appears to be small pleural effusions in the posterior costophrenic angles bilaterally. The cardiac silhouette and pulmonary vessels are within normal limits. IMPRESSION: Small pleural effusions with no acute findings otherwise seen.
[2023-01-20] MEDS: ONDANSETRON 4 MG/2 ML VIAL IVP PRN ×2 (00:05→11:42)
[2023-01-20] MEDS: KETOROLAC 15 MG/ML 1 ML VIAL IVP SCH ×4 (00:07→18:05)
[2023-01-20] MEDS: SODIUM CHLORIDE 0.9% 1,000 ML IV SCH ×3 (00:29→23:57)
[2023-01-20] MEDS: LACTATED RINGERS 1,000 ML IV SCH ×3 (01:10→23:56)
[2023-01-20] MEDS: HYDROcodone/APAP 7.5-325MG 1 EACH TAB PO PRN (07:27)
[2023-01-20] MEDS: HEPARIN SODIUM,PORCINE/PF 5,000 UNIT/0.5 ML SYRINGE SQ SCH ×3 (07:53→23:43)
[2023-01-20] MEDS: CEFEPIME 2 GM in SODIUM CHLORIDE 0.9% 100 ML IVPB SCH ×3 (07:53→23:43)
[2023-01-20] MEDS: metroNIDAZOLE-NS PMX 500 MG in SALINE 1 100ML.BAG IVPB SCH ×3 (07:53→23:44)
[2023-01-20] MEDS: DOCUSATE 100 MG CAP PO SCH ×2 (07:53→22:36)
[2023-01-20 10:50] LABS: African American GFR (CKD) 167.7 (60.0-200.0); Albumin 3.1 g/dL (3.8-4.9); Albumin/Globulin Ratio 1.41 (1.60-3.17); Anion Gap 13.5 mmol/L (10.00-18.00); Calcium 8.5 mg/dL (8.7-10.3); Carbon Dioxide 21.5 mmol/L (20.0-27.5); Globulin 2.2 g/dL (1.6-3.3); Non-African American GFR(CKD) 144.7 (60.0-200.0); Potassium 4.3 mmol/L (3.5-5.5); Total Bilirubin 0.5 mg/dL (0.30-1.20); Total Protein 5.3 g/dL (6.2-8.2)
[2023-01-20 11:08] LABS: Basophils # (A) 0.04 X 10*3/uL (0.00-0.10); Basophils % (A) 0.4 %; Eosinophils % (A) 8.8 %; HCT 38.5 % (39.6-50.0); HGB 13.3 g/dL (13.0-17.0); Immature Grans, Automated 0.5 %; Lymphocytes # (A) 2.22 X 10*3/uL (0.90-5.00); Lymphocytes % (A) 21.8 %; MCH 30.8 pg (27.0-32.0); MCHC 34.5 g/dL (32.0-37.0); MCV 89.1 fL (80.0-97.0); Monocytes # (A) 0.88 X 10*3/uL (0.20-1.00); Monocytes % (A) 8.6 %; NRBC Per 100 WBC 0 /100 WBCS (0.0-0.0); Neutrophils # (A) 6.09 X 10*3/uL (1.80-7.70); Neutrophils % (A) 59.9 %; Platelet Count 275 X 10*3/uL (140-440); RBC 4.32 X 10*6/uL (4.40-5.60); RDW 12.8 % (11.5-14.5); WBC 10.18 X 10*3/uL (4.50-10.00)
--- NOTE | 2023-01-20 19:26 | P.PN ---
Subjective Progress Note Date: 01/20/23 Principal diagnosis: acute appendicitis 22-year-old gentleman who presented to [facility] emergency Department 01/16/2023 with chief complaints of nearly 24 hours of progressive abdominal pain that started centrally, came to rest in the right side accompanied by intractable nausea and emesis and subjective chills. Laboratory studies showed a leukocytosis at around 17,000, computed tomography scan of the abdomen and pelvis showed findings consistent with acute appendicitis without obvious rupture or abscess formation and physical exam demonstrated localized peritonitis in the right lateral abdomen with positive Rovsing's and Psoas sign. Patient was started on broad-spectrum antibiotics in the emergency department, options for treatment were discussed and the patient gave informed consent for laparoscopic, possible open appendectomy after discussion of risks, benefit and alternatives to treatment. He was taken to the operating room that same evening for definitive surgery & found to have a gangrenous appendix without rupture or abscess formation. Past 24 hours, feeling a lot better. Eating little more; improving appetite. Passing flatus, no BMs yet. Pain much better controlled. Not requiring much for narcotics, per nursing staff. WBC continues to down-trend. No further pleuritic chest pain; CXR unremarkable, suspect 2/2 gas pains. No tachycardia, no tachypnea. Drain with minimal serosanguinous, more serous, output. Objective - Vital Signs Vital signs: Vital Signs Temp 98.2 F 01/20/23 02:00 Pulse 81 01/20/23 07:56 Resp 16 01/20/23 07:56 BP 120/78 01/20/23 02:00 Pulse Ox 99 01/20/23 02:00 FiO2 Intake & Output 01/19/23 01/20/23 01/20/23 18:59 06:59 18:59 Output Total 570 Balance -570 Output: Drainage 20 Left Abdomen 20 Urine 550 Other: Voiding Method Toilet Urinal # Voids 2 6 - Constitutional General appearance: Present: cooperative, no acute distress, thin - EENT Eyes: Present: anicteric sclerae ENT: Present: hearing grossly normal - Neck Details: supple - Respiratory Details: non labored breathing, normal effort & excursion - Cardiovascular Rhythm: regular - Gastrointestinal Gastrointestinal Comment(s): incisions healing well, lata in place; AMNA with minimal serosanguinous output General gastrointestinal: Present: soft. Absent: distended, tenderness - Integumentary Integumentary Comment(s): dry, no diaphoresis - Neurologic Neurologic Comment(s): grossly intact - Psychiatric Psychiatric Comment(s): cooperative Psychiatric: Present: appropriate affect - Labs CBC & Chem 7: 01/20/23 06:52 01/20/23 06:52 Labs: Abnormal Lab Results - Last 24 Hours (Table) 01/19/23 01/19/23 Range/Units 06:51 06:51 WBC 11.24 H (4.50-10.00) X 10*3/uL Immature Gran # 0.06 H (0.00-0.04) X 10*3/uL Neutrophils # 8.11 H (1.80-7.70) X 10*3/uL Carbon Dioxide 18.8 L (20.0-27.5) mmol/L Total Protein 5.7 L (6.2-8.2) g/dL Albumin 3.3 L (3.8-4.9) g/dL Albumin/Globulin Ratio 1.38 L (1.60-3.17) g/dL Microbiology - Last 24 Hours (Table) 01/16/23 19:09 Anaerobic Culture - Preliminary Abdominal Fluid Anaerobic Gm Negative Bacilli 01/16/23 15:40 Blood Culture - Preliminary Blood No Growth after 72 hours 01/16/23 15:30 Blood Culture - Preliminary Blood No Growth after 72 hours - Imaging and Cardiology Chest x-ray: report reviewed Assessment and Plan Assessment: acute appendicitis with gangrenous changes towards the tip and diffuse purulent peritonitis - anticipate degree of post-operative ileus- resolving postoperative day 4 laparoscopic appendectomy with washout and drain placement - drain output minimal - cultures no growth for past 48 hours, anaerobic gram stain +GNB - path returned: Suppurative acute appendicitis with transmural inflammation and periappendicitis pleuritic chest pain, suspect 2/2 gas pains or atelectasis; less likely pneumonia- resolved - no respiratory issues, CXR unremarkable Plan: continue pain regimen, encourage oral meds over IV try to give 6 hours uninterrupted sleep time overnight stool softener encourage ambulation, IS use will remove AMNA today anticipate discharge tomorrow Time with Patient: Less than 30
[2023-01-21] MEDS: SODIUM CHLORIDE 0.9% 1,000 ML IV SCH (00:26)
[2023-01-21] MEDS: LACTATED RINGERS 1,000 ML IV SCH (00:27)
[2023-01-21] MEDS: ONDANSETRON 4 MG/2 ML VIAL IVP PRN (03:40)
[2023-01-21] MEDS: DOCUSATE 100 MG CAP PO SCH (07:47)
[2023-01-21] MEDS: metroNIDAZOLE-NS PMX 500 MG in SALINE 1 100ML.BAG IVPB SCH (07:47)
[2023-01-21] MEDS: HEPARIN SODIUM,PORCINE/PF 5,000 UNIT/0.5 ML SYRINGE SQ SCH (08:12)
[2023-01-21] MEDS: CEFEPIME 2 GM in SODIUM CHLORIDE 0.9% 100 ML IVPB SCH (09:38)
[2023-01-21 14:04] VITALS: BP 136/82; PULSE 76; RESP 15; TEMP 98.4
[2023-01-21 15:06] VITALS: BMI 19.5
--- NOTE | 2023-01-21 16:42 | P.DS ---
Providers Date of admission: 01/16/23 15:29 Attending physician: Vito Dao DO Consults: 01/16/23 16:39 Consult Physician Routine Consulting Provider: [facility] Consult Reason/Comments: [facility] Do you want consulting provider notified?: Yes Primary care physician: Stated None - Discharge Diagnosis(es) (1) Acute appendicitis with generalized peritonitis and gangrene, without abscess Current Visit: Yes Status: Resolved (2) Appendicitis Current Visit: Yes Status: Resolved (3) Dehydration Current Visit: Yes Status: Resolved (4) Gangrenous appendicitis Current Visit: Yes Status: Resolved Hospital Course: 22-year-old gentleman who presented to [facility] emergency Department 01/16/2023 with chief complaints of nearly 24 hours of progressive abdominal pain that started centrally, came to rest in the right side accompanied by intractable nausea and emesis and subjective chills. Laboratory studies showed a leukocytosis at around 17,000, computed tomography scan of the abdomen and pelvis showed findings consistent with acute appendicitis without obvious rupture or abscess formation and physical exam demonstrated localized peritonitis in the right lateral abdomen with positive Rovsing's and Psoas sign. Patient was started on broad-spectrum antibiotics in the emergency department, options for treatment were discussed and the patient gave informed consent for laparoscopic, possible open appendectomy after discussion of risks, benefit and alternatives to treatment. He was taken to the operating room that same evening for definitive surgery & found to have a gangrenous appendix without rupture or abscess formation. Post-operatively, progressively did well. Increased ambulation. Pain controlled with minimal PO analgesia. Tolerating PO intake. Passing flatus with small bowel movements. Drain with minimal serous output; removed; tolerated removal. Cleared for discharge home. Assessment: Resting comfortably, NAD, non toxic Normal hearing No scleral icterus Neck supple Non labored breathing, normal effort & excursion; no tachypnea Reg rate; no tachycardia Abdomen flat with healing incisions, lata in place No LE edema Skin dry, no diaphoresis Cooperative, normal affect No gross deficits Procedures: s/p laparoscopic appendectomy Patient Condition at Discharge: Stable Plan - Discharge Summary Discharge Rx Participant: No New Discharge Prescriptions: No Action No Known Home Medications Discharge Medication List No Known Home Medications 01/16/23 [History] Follow up Appointment(s)/Referral(s): None,Stated [Primary Care Provider] - 1-2 days Nery Hernandez DO [Doctor of Osteopathic Medicine] - 1 Week Patient Instructions/Handouts: Appendicitis (GEN), Deep Vein Thrombosis Prevention (GEN), *Surgery [facility] - Managing Your Pain After Surgery Without Opioids Activity/Diet/Wound Care/Special Instructions: OK to shower & pat dry. No bathing, hot tubs, soaking, swimming for next week. No heavy lifting >20 lbs for next week; then gradually advance as tolerated. No driving while taking narcotic pain medications. Gauze dressings as needed, otherwise incisions OK to be open to air. Ice packs as needed. Continue to walk & use incentive spirometer. Rx given for Motrin, Tylenol, Axson (3 days; opiate talking form completed) & Colace. Discharge Disposition: HOME SELF-CARE
== END 2023-01-21 17:59 | disposition home or self-care (01) | DRG 854 ==
LOC: EC 12:26 → 4SSUR 15:29
PROVIDERS: ADMIT Surgery; ATTEND Surgery
PROC: 0DTJ4ZZ Resection of Appendix, Percutaneous Endoscopic Approach (ICD-10-PCS; principal; 2023-01-16 17:43)
DX: A41.9 Sepsis, unspecified organism (principal); K35.31 Acute appendicitis with localized peritonitis and gangrene, without perforation; E86.0 Dehydration; F41.9 Anxiety disorder, unspecified; Z88.0 Allergy status to penicillin
CPT/HCPCS: 36415; 71046; 74177; 76770; 76870; 80048; 80053; 81003; 82150; 83605; 83690; 85025; 85610; 85730; 87040; 87070; 87075; 87077; 87186; 87205; 88304; 93975; 94760; 96361; 96374; 96375; 96376; 99285